=== PATIENT | female | born 1990 | race Caucasian/White ===

== ENCOUNTER → 2017-06-05 | Outpatient (CLI) | payer BC | END | disposition home or self-care (01) | LOC: C.PAPS 11:36 | PROVIDERS: ATTEND Physician Assistant | DX: Z01.419 Encounter for gynecological examination (general) (routine) without abnormal findings (principal) ==

== ENCOUNTER → 2017-06-05 | Outpatient (CLI) | payer BC | END | disposition home or self-care (01) | LOC: C.LABSPEC 10:42 | PROVIDERS: ATTEND Physician Assistant | DX: Z01.419 Encounter for gynecological examination (general) (routine) without abnormal findings (principal) ==

== ENCOUNTER → 2017-12-09 | Outpatient (CLI) | payer OTHER ==
[~2017-12-09] MED LIST: BREX1TAB4 PO; BUPR-79 PO; PRAZ1CAP10 PO
--- NOTE | 2017-12-17 15:23 | POLYSOMNOGRAPH REPORT ---
CLINICAL DATA: A 27-year-old female with BMI of 30.2, referred by Dr. Kathy Hillman for history of chronic insomnia with difficulty falling asleep and staying asleep, even when heavily medicated. She does snore and sometimes awakens with morning headaches. She has major depression. On the evening of 12/09/2017, a home sleep apnea test was performed. A [place] type 3 monitor was used. RECORDING RESULTS: Total recording time was 10 hours. The patient's estimated sleep time and patient monitoring time was 7.2 hours. RESPIRATORY DATA: There was no evidence of clinically significant sleep apnea seen. The BRANDON was 0.6. There were 4 hypopneic episodes. The longest hypopneic episode was 17 seconds. OXIMETRY DATA: Transient hypoxemia was seen. Oxygen lucas was 87%. Mean saturation was 91%. Time below 89% was 14 minutes. HEART RATE DATA: Heart rates ranged from 53-75 beats per minute. SNORING DATA: Snoring was recorded throughout the night. IMPRESSION: No evidence of clinically significant sleep apnea/hypopnea or nocturnal hypoxemia. RECOMMENDATIONS: The patient should continue to practice good sleep hygiene. BRID
== END | disposition home or self-care (01) ==
LOC: C.NEUR 10:37
PROVIDERS: ATTEND Family Medicine
DX: G47.00 Insomnia, unspecified (principal)